=== PATIENT | female | born 1980 | race American Indian/Alaskan Native ===

== ENCOUNTER 2020-08-22 10:22 | Day surgery (SDC) | payer MEDICAID ==
[~2020-08-22 10:22] MED LIST: LACTATED RINGERS 1,000 ML IV SCH; MIDAZOLAM 2 MG/2 ML INJ IV NR
[2020-08-22] MEDS ORDERED: ceFAZolin/STERILE WATER 2 GM/20 ML SYRINGE IV NR (11:25)
--- NOTE | 2020-08-22 11:26 | Anesthesia Day of Surgery ---
Anesthesia Day of Surgery - Day of Surgery Patient Examined: Yes Patient H&P Reviewed: Yes Patient is NPO: Yes Beta Blockers: Yes (propanolol yesterday PM)
--- NOTE | 2020-08-22 11:26 | Anesthesia Consultation ---
Anesthesia Consult and Med Hx Date of service: 08/22/20 - Airway Anesthetic Teeth Evaluation: Good ROM Head & Neck: Adequate Mental/Hyoid Distance: Adequate Mallampati Class: Class II Intubation Access Assessment: Probably Good - Pulmonary Exam CTA: Yes - Cardiac Exam Cardiac Exam: RRR - Pre-Operative Health Status ASA Pre-Surgery Classification: ASA2 Proposed Anesthetic Plan: General - Pulmonary Hx Smoking: Yes Hx Respiratory Symptoms: No Hx Sleep Apnea: No (VALDEZ PRE SCREEN LOW RISK) - Cardiovascular System Hx Hypertension: Yes (took propanolol yesterday PM (usually takes at night)) Hx Heart Attack/AMI: No Hx Percutaneous Transluminal Coronary Angioplasty (PTCA): No Hx Cardia Arrhythmia: No - Central Nervous System CVA: No Hx Back Pain: Yes Hx Psychiatric Problems: Yes (anxiety/depression) - Endocrine Hx Renal Disease: No Hx Liver Disease: No Hx Insulin Dependent Diabetes: No Hx Non-Insulin Dependent Diabetes: No Hx Thyroid Disease: No - Other Systems Hx Obesity: No - Additional Comments Anesthesia Medical History Comments: No hx anesthetic complications. BP elevated in preop which she believes is due to anxiety.
--- NOTE | 2020-08-22 11:41 | Post Operative Note ---
Date of procedure: 08/22/20 Pre-op diagnosis: cystitis Post-op diagnosis: same Findings: see op note Procedure: cysto hydro rpgs Anesthesia: GETA Surgeon: ISAURO ANDRADE Estimated blood loss: none Condition: stable Disposition: PACU
--- NOTE | 2020-08-22 11:42 | Discharge Summary ---
Short Stay Discharge Plan Activity: other (no straining ) Weight Bearing Status: Full Weight Bearing Diet: regular, low fat Special Instructions: other (inc fluids ) Follow up with: LUIGI CORREIA MD [Primary Care Provider] - 7 Days ISAURO ANDRADE MD [Staff Physician] - 7 Days
[2020-08-22] MEDS ORDERED: HYDROmorphone 1 MG/1 ML INJ ONE (11:47)
[2020-08-22] MEDS ORDERED: propofoL 200 MG/20 ML VIAL IV ONE (11:47)
[2020-08-22] MEDS ORDERED: LIDOCAINE MPF (2%) 20 MG/1 ML VIAL 5 ML ONE (11:48)
[2020-08-22] MEDS ORDERED: PHENYLEPHRINE/NS 1,000 MCG/10 ML SYRINGE (OR USE) IV ONE (12:02)
[2020-08-22] MEDS ORDERED: ONDANSETRON 4 MG/2 ML INJ ONE (12:10)
[2020-08-22] MEDS ORDERED: IOHEXOL 300 MG/ML 50ML IV ONE (12:11)
[2020-08-22] MEDS ORDERED: FUROSEMIDE 40 MG/4 ML INJ ONE (12:12)
[2020-08-22] MEDS ORDERED: WATER FOR IRRIG STERILE 2000 ML IR ONE (12:15)
--- NOTE | 2020-08-22 12:46 | Operative Report ---
PREOPERATIVE DIAGNOSIS: Chronic cystitis. POSTOPERATIVE DIAGNOSIS: Chronic cystitis. PROCEDURE: Cystoscopy, hydrodistention, retrograde. SURGEON: Elliot Lam MD ANESTHESIA: General. FINDINGS: This is a woman with pelvic pain. I had seen her a few months ago. She now presents for cystoscopy. DESCRIPTION OF PROCEDURE: The patient was brought to operating room and placed on the operating table. Following induction of anesthesia, placed in lithotomy position, prepped and draped in usual sterile fashion. Cystourethroscopy showed a contracted bladder about 400 mL. With hydrodistention, we got it may be too closer to 500. There were few glomerulations bilaterally, nothing diffuse, no Hunner's ulcers. The urethra was quite tight, it was dilated. The patient tolerated the procedure well with no significant complication. We left the [place] for a few hours. She will be discharged hopefully without a catheter. JOB# [id number] JOAQUIM/RICK
--- NOTE | 2020-08-22 13:02 | Fluoroscopy Report ---
FLUOROSCOPY RETROGRADE UROGRAPHY HISTORY: Cystitis FINDINGS: Fluoroscopy was provided by radiology during retrograde urography by the urologist. There i s normal filling of both renal collecting systems. No filling defect or abnormal dilatation is identi fied. There is good drainage of both collecting systems on the final image. IMPRESSION: Unremarkable bilateral retrograde pyelograms Fluoroscopy time: 3 seconds Fluoroscopic images: 4 Signer Name: Levi Cabrera Jr, MD Signed: 08/22/2020 12:58 PM Workstation Name: [id number]
--- NOTE | 2020-08-22 15:01 | Post Anesthesia Evaluation ---
- Post Anesthesia Evaluation Patient Participated: Yes Airway Patent: Yes Stable Respiratory Function: Yes Nausea/Vomiting: No Temp > 96.8F: Yes Pain Manageable: Yes Adequeate Hydration: Yes Anesthesia Complications: No
[2020-08-22 19:01] VITALS: BP 128/82
== END 2020-08-22 10:23 | disposition home or self-care (01) ==
LOC: OR 10:22
PROVIDERS: ATTEND Urology
DX: N30.20 Other chronic cystitis without hematuria (principal); G43.909 Migraine, unspecified, not intractable, without status migrainosus; I10 Essential (primary) hypertension; F32.9 Major depressive disorder, single episode, unspecified; F41.9 Anxiety disorder, unspecified; D64.9 Anemia, unspecified; F17.210 Nicotine dependence, cigarettes, uncomplicated; Z72.89 Other problems related to lifestyle; Z87.440 Personal history of urinary (tract) infections; Z79.899 Other long term (current) drug therapy; Z98.890 Other specified postprocedural states
CPT/HCPCS: 52005; 74420; 81025; A4217; J1170; J1940; J2250; J2370; J2405; J2704; J7120; Q9967